=== PATIENT | female | born 1990 | race Caucasian/White ===

== ENCOUNTER 2018-06-20 11:56 | Emergency (ER) | payer MEDICAID ==
[2018-06-20] MEDS ORDERED: Sodium Chloride 0.9% 1,000 ML IV ONE (12:04)
--- NOTE | 2018-06-20 12:20 | EDM.PDOC ---
ED HPI GENERAL MEDICAL PROBLEM - General Chief Complaint: Trauma Stated Complaint: FALL/HIT HEAD Time Seen by Provider: 06/20/18 12:19 Source of Information: Reports: Patient - History of Present Illness INITIAL COMMENTS - FREE TEXT/NARRATIVE: HISTORY AND PHYSICAL: History of present illness: [Patient is 18 weeks with IUP, today she was shopping at [employer] became lightheaded dizzy and then passed out bystanders say she was out for what seemed to be several minutes she did hit her head on the floor she fell back striking her head and she did not land on her stomach She arrives via EMS information is provided by EMS per bystander witnesses No fever nausea vomiting chills sweats no chest pain shortness breath headache dizziness palpitation about a urine symptoms patient does not recall the incident outside of she was shopping and felt lightheaded this has resolved ] Review of systems: As per history of present illness and below otherwise all systems reviewed and negative. Past medical history: As per history of present illness and as reviewed below otherwise noncontributory. Surgical history: As per history of present illness and as reviewed below otherwise noncontributory. Social history: No reported history of drug or alcohol abuse. Family history: As per history of present illness and as reviewed below otherwise noncontributory. Physical exam: HEENT: Atraumatic, normocephalic, pupils reactive, negative for conjunctival pallor or scleral icterus, mucous membranes moist, throat clear, neck supple, nontender, trachea midline. Lungs: Clear to auscultation, breath sounds equal bilaterally, chest nontender. Heart: S1S2, regular, negative for clicks, rubs, or JVD. Abdomen: Soft, nondistended, nontender. Negative for masses or hepatosplenomegaly. Negative for costovertebral tenderness. Pelvis: Stable nontender. Genitourinary: Deferred. Rectal: Deferred. Extremities: Atraumatic, negative for cords or calf pain. Neurovascular unremarkable. Neuro: Awake, alert, oriented. Cranial nerves II through XII unremarkable. Cerebellum unremarkable. Motor and sensory unremarkable throughout. Exam nonfocal. Diagnostics: [CBC CMP UA INR EKG Head CT no contrast OB ultrasound Orthostatic vitals ] heart tones Therapeutics: [ saline ] Impression: Vaso-vagal syncope ] Possible concussion with LOC 18 week IUP with no complications at this time Definitive disposition and diagnosis as appropriate pending reevaluation and review of above. 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: Musculoskeletal History: Reports: None Neurological History: Reports: None Psychiatric History: Reports: None Endocrine/Metabolic History: Reports: None Hematologic History: Reports: None Immunologic History: Reports: None Oncologic (Cancer) History: Reports: None Dermatologic History: Reports: None - Infectious Disease History Infectious Disease History: Reports: Chicken Pox - Past Surgical History Head Surgeries/Procedures: Reports: None Cardiovascular Surgical History: Reports: None Social & Family History - Family History Family Medical History: Noncontributory - Tobacco Use Smoking Status *Q: Never Smoker - Caffeine Use Caffeine Use: Reports: Coffee - Recreational Drug Use Recreational Drug Use: No Review of Systems - Review of Systems Review Of Systems: See Below ED EXAM, GENERAL - Physical Exam Exam: See Below Course - Vital Signs Last Recorded V/S: Last Vital Signs Temp 96.2 F 06/20/18 12:00 Pulse 97 06/20/18 12:00 Resp 18 06/20/18 12:00 BP 124/71 06/20/18 12:00 Pulse Ox 97 06/20/18 12:00 - Orders/Labs/Meds Orders: Active Orders 24 hr Category Date Time Status EKG Documentation Completion [RC] STAT Care 06/20/18 12:05 Active Heart Tones [ Heart Rate] [RC] Click to Edit Care 06/20/18 12:30 Active Orthostatic Vital Signs [RC] ASDIRECTED Care 06/20/18 12:20 Active Labs: Laboratory Tests 06/20/18 06/20/18 06/20/18 Range/Units 12:15 13:33 13:33 WBC 13.56 H (4.0-11.0) K/uL RBC 3.97 L (4.30-5.90) M/uL Hgb 11.9 L (12.0-16.0) g/dL Hct 34.5 L (36.0-46.0) % MCV 86.9 (80.0-98.0) fL MCH 30.0 (27.0-32.0) pg MCHC 34.5 (31.0-37.0) g/dL RDW Std Deviation 45.2 (28.0-62.0) fl RDW Coeff of Carrington 15 (11.0-15.0) % Plt Count 206 (150-400) K/uL MPV 11.50 (7.40-12.00) fL Add Manual Diff YES Neutrophils % (Manual) 80 (48.0-80.0) % Band Neutrophils % 3 % Lymphocytes % (Manual) 12 L (16.0-40.0) % Monocytes % (Manual) 4 (0.0-15.0) % Eosinophils % (Manual) 1 (0.0-7.0) % Nucleated RBC % 0.0 /100WBC Absolute Seg Neuts 10.8 H (1.4-5.7) Band Neutrophils # 0.4 Lymphocytes # (Manual) 1.6 (0.6-2.4) Monocytes # (Manual) 0.5 (0.0-0.8) Eosinophils # (Manual) 0.1 (0.0-0.7) Nucleated RBCs # 0 K/uL INR 1.05 Sodium 137 (136-145) mmol/L Potassium 3.3 L (3.5-5.1) mmol/L Chloride 103 (98-107) mmol/L Carbon Dioxide 20.1 L (21.0-32.0) mmol/L BUN 5 L (7.0-18.0) mg/dL Creatinine 0.7 (0.6-1.0) mg/dL Est Cr Clr Drug Dosing 100.74 mL/min Estimated GFR (MDRD) > 60.0 ml/min Glucose 110 H (74-106) mg/dL Calcium 9.0 (8.5-10.1) mg/dL Total Bilirubin 0.3 (0.2-1.0) mg/dL AST 14 L (15-37) IU/L ALT 17 (14-63) IU/L Alkaline Phosphatase 65 (46-116) U/L Troponin I < 0.050 (0.000-0.056) ng/mL Total Protein 6.6 (6.4-8.2) g/dL Albumin 3.0 L (3.4-5.0) g/dL Globulin 3.6 (2.6-4.0) g/dL Albumin/Globulin Ratio 0.8 L (0.9-1.6) Meds: Medications Discontinued Medications Generic Name Dose Route Start Last Admin Trade Name Freddyq PRN Reason Stop Dose Admin Sodium Chloride 1,000 mls @ 999 mls/hr 06/20/18 12:04 06/20/18 12:28 Normal Saline IV 06/20/18 13:04 999 mls/hr STAT ONE Administration Potassium Chloride 20 meq 06/20/18 13:33 06/20/18 13:39 Klor-Con M20 PO 06/20/18 13:34 20 meq ONETIME ONE Administration Departure - Departure Time of Disposition: 14:04 Disposition: Home, Self-Care 01 Condition: Good Clinical Impression: Vasovagal syncope - Discharge Information Referrals: PCP,None [Primary Care Provider] - Forms: ED Department Discharge Additional Instructions: The following information is given to patients seen in the emergency department who are being discharged to home. This information is to outline your options for follow-up care. We provide all patients seen in our emergency department with a follow-up referral. The need for follow-up, as well as the timing and circumstances, are variable depending upon the specifics of your emergency department visit. If you don't have a primary care physician on staff, we will provide you with a referral. We always advise you to contact your personal physician following an emergency department visit to inform them of the circumstance of the visit and for follow-up with them and/or the need for any referrals to a consulting specialist. The emergency department will also refer you to a specialist when appropriate. This referral assures that you have the opportunity for follow-up care with a specialist. All of these measure are taken in an effort to provide you with optimal care, which includes your follow-up. Under all circumstances we always encourage you to contact your private physician who remains a resource for coordinating your care. When calling for follow-up care, please make the office aware that this follow-up is from your recent emergency room visit. If for any reason you are refused follow-up, please contact the [facility] emergency department at and asked to speak to the emergency department charge nurse. - My Orders Last 24 Hours: My Active Orders 06/20/18 12:05 EKG Documentation Completion [RC] STAT 06/20/18 12:20 Orthostatic Vital Signs [RC] ASDIRECTED 06/20/18 12:30 Heart Tones [ Heart Rate] [RC] Click to Edit - Assessment/Plan Last 24 Hours: My Active Orders 06/20/18 12:05 EKG Documentation Completion [RC] STAT 06/20/18 12:20 Orthostatic Vital Signs [RC] ASDIRECTED 06/20/18 12:30 Heart Tones [ Heart Rate] [RC] Click to Edit
--- NOTE | 2018-06-20 13:13 | CT ---
EXAMINATION: Non contrast CT head. Coronal and sagittal reformats. HISTORY: LOC FINDINGS: No evidence of intra or extra axial hemorrhage, mass, midline shift, hydrocephalus or edema. No hypoattenuation changes in the major vascular territories to suggest acute infarct. No abnormal intracranial calcifications are detected. No evidence of substantial vascular calcifications. Paranasal sinuses and mastoid air cells are well aerated without substantial findings. Orbits and globes are symmetric. Pituitary fossa appears unremarkable. Calvarium is intact. No evidence of skull fracture. IMPRESSION: No acute intracranial findings.
[2018-06-20 13:25] LABS: CHLORIDE,CL 103 mmol/L (98-107); SODIUM,NA 137 mmol/L (136-145)
--- NOTE | 2018-06-20 13:31 | US ---
EXAMINATION: Transabdominal obstetric ultrasound HISTORY: Bleeding COMPARISON: None TECHNIQUE: Grayscale, M-mode imaging obtained. FINDINGS: Single live intrauterine . Placenta appears posterior and intact. heart rate is 148 bpm. The fetus is in a breech position. The biparietal diameter measures 4 cm, head circumference measures 15.1 cm, the abdominal circumference measures 12.6 cm, and the femoral length measures 2.8 cm. This gives an estimated gestational age of 18 weeks and 1 day with an estimated date of delivery at 11/20/2018. Overall the fetus is within the 57th percentile. heart rate is 148 bpm. Estimated weight is 235 g. IMPRESSION: 1. Single live intrauterine in a breech position. 2. Posterior placenta which appears intact.
[2018-06-20] MEDS ORDERED: Potassium Chloride 20 MEQ Tab.ER PO ONE (13:33)
== END 2018-06-20 14:41 | disposition home or self-care (01) ==
LOC: MW.ED 11:56
DX: O99.89 Other specified diseases and conditions complicating pregnancy, childbirth and the puerperium (principal); R55 Syncope and collapse; W08.XXXA Fall from other furniture, initial encounter; Z3A.18 18 weeks gestation of pregnancy
CPT/HCPCS: 36415; 70450; 76805; 80053; 81001; 84484; 85025; 85610; 87086; 93005; 96360; 99285; A9270; J7040; 99284

== ENCOUNTER 2018-11-15 02:49 | Inpatient (IN) | payer MEDICAID ==
[2018-11-15] MEDS ORDERED: Misoprostol 200 MCG Tab PO PRN (03:31)
[2018-11-15] MEDS ORDERED: Nalbuphine 10 MG/1 ML Vial IVPUSH PRN (03:31)
[2018-11-15] MEDS ORDERED: Carboprost Tromethamine 250 MCG/1 ML Amp IM PRN (03:31)
[2018-11-15] MEDS ORDERED: Lidocaine 1% 50 ML MDV INJECT PRN (03:31)
[2018-11-15] MEDS ORDERED: Tranexamic Acid 1,000 MG in Sodium Chloride 0.9% 100 ML IV PRN (03:31)
[2018-11-15] MEDS ORDERED: Butorphanol 1 MG/ML SDV IVPUSH PRN (03:31)
[2018-11-15] MEDS ORDERED: Sodium Chloride 0.9% 10 ML Syringe FLUSH PRN (03:31)
[2018-11-15] MEDS ORDERED: Sodium Chloride 0.9% 2.5 ML Syringe FLUSH PRN (03:31)
[2018-11-15] MEDS ORDERED: Water For Irrigation,Sterile 1,000 ML Container IRR PRN (03:31)
[2018-11-15] MEDS ORDERED: Methylergonovine 0.2 MG/1 ML Amp IM PRN (03:31)
[2018-11-15] MEDS ORDERED: Sodium Chloride 0.9% 10 ML SDV IV PRN (03:31)
[2018-11-15] MEDS ORDERED: Ondansetron 4 MG/2 ML SDV IVPUSH PRN (03:31)
[2018-11-15] MEDS ORDERED: Oxytocin/0.9 % Sodium Chloride 30 UNIT/500 ML BAG IV SCH ×2 (03:45→07:45)
[2018-11-15] MEDS: Lactated Ringers 1,000 ML IV SCH ×4 (04:00→08:51)
--- NOTE | 2018-11-15 05:12 | PCM.PREANE ---
Preanesthetic Assessment - Anesthesia/Transfusion/Family Hx Anesthesia History: Prior Anesthesia Without Reaction Family History of Anesthesia Reaction: No Transfusion History: No Prior Transfusion(s) - Review of Systems General: No Symptoms Pulmonary: No Symptoms Cardiovascular: No Symptoms Gastrointestinal: No Symptoms Neurological: No Symptoms Other: Reports: None - Physical Assessment Height: 5 ft 2 in Weight: 104.326 kg ASA Class: 2 Mental Status: Alert & Oriented x3 Airway Class: Mallampati = 2 Dentition: Reports: Normal Dentition Thyro-Mental Finger Breadths: 3 Mouth Opening Finger Breadths: 3 ROM/Head Extension: Full Lungs: Clear to Auscultation, Normal Respiratory Effort Cardiovascular: Regular Rate, Regular Rhythm - Lab Values: Laboratory Last Values WBC 12.87 K/uL (4.0-11.0) H 11/15/18 03:45 RBC 3.83 M/uL (4.30-5.90) L 11/15/18 03:45 Hgb 10.7 g/dL (12.0-16.0) L 11/15/18 03:45 Hct 33.2 % (36.0-46.0) L 11/15/18 03:45 MCV 86.7 fL (80.0-98.0) 11/15/18 03:45 MCH 27.9 pg (27.0-32.0) 11/15/18 03:45 MCHC 32.2 g/dL (31.0-37.0) 11/15/18 03:45 RDW Std Deviation 49.4 fl (28.0-62.0) 11/15/18 03:45 RDW Coeff of Carrington 16 % (11.0-15.0) H 11/15/18 03:45 Plt Count 206 K/uL (150-400) 11/15/18 03:45 MPV 12.40 fL (7.40-12.00) H 11/15/18 03:45 Nucleated RBC % 0.0 /100WBC 11/15/18 03:45 Nucleated RBCs # 0 K/uL 11/15/18 03:45 Blood Type O POSITIVE 11/15/18 03:45 Antibody Screen NEGATIVE 11/15/18 03:45 - Allergies Allergies/Adverse Reactions: Allergies Allergy/AdvReac Type Severity Reaction Status Date / Time No Known Allergies Allergy Verified 06/20/18 12:07 - Acknowledgements Anesthesia Type Planned: Epidural Pt an Appropriate Candidate for the Planned Anesthesia: Yes Alternatives and Risks of Anesthesia Discussed w Pt/Guardian: Yes Pt/Guardian Understands and Agrees with Anesthesia Plan: Yes PreAnesthesia Questionnaire - Past Health History Medical/Surgical History: Denies Medical/Surgical History HEENT History: Reports: None Cardiovascular History: Reports: None Respiratory History: Reports: None Gastrointestinal History: Reports: GERD Genitourinary History: Reports: None 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 LMP (Approximate): Musculoskeletal History: Reports: None Neurological History: Reports: None Psychiatric History: Reports: None Endocrine/Metabolic History: Reports: Obesity/BMI 30+ Hematologic History: Reports: Anemia Immunologic History: Reports: None Oncologic (Cancer) History: Reports: None Dermatologic History: Reports: None - Infectious Disease History Infectious Disease History: Reports: Chicken Pox - Past Surgical History Head Surgeries/Procedures: Reports: None Cardiovascular Surgical History: Reports: None - SUBSTANCE USE Smoking Status *Q: Never Smoker Tobacco Use Within Last Twelve Months: No Second Hand Smoke Exposure: No Recreational Drug Use History: No - HOME MEDS Home Medications: Home Meds Pnv No.95/Ferrous Fum/Folic AC [ Caplet] 1 tab PO DAILY 06/20/18 [ History] - CURRENT (IN HOUSE) MEDS Current Meds: Current Medications Butorphanol Tartrate (Stadol) 1 mg IVPUSH Q1H PRN PRN Reason: Pain Carboprost Tromethamine (Hemabate Ds) 250 mcg IM ASDIRECTED PRN PRN Reason: Post Hemorrhage Tranexamic Acid 1,000 mg/ (Sodium Chloride) 110 mls @ 660 mls/hr IV ONETIME PRN PRN Reason: Bleeding Lactated Ringer's (Ringers, Lactated) 1,000 mls @ 150 mls/hr IV ASDIRECTED [facility] Last Admin: 11/15/18 04:00 Dose: 500 mls/hr Oxytocin/Sodium Chloride (Oxytocin 30 Unit/500 Ml-Ns) 30 unit in 500 mls @ 999 mls/hr IV TITRATE [facility] Lidocaine HCl (Xylocaine 1%) 50 ml INJECT ONETIME PRN PRN Reason: Laceration repair Methylergonovine Maleate (Methergine) 0.2 mg IM ASDIRECTED PRN PRN Reason: Post Hemorrhage Misoprostol (Cytotec) 200 mcg PO ONETIME PRN PRN Reason: Post Hemorrhage Nalbuphine HCl (Nubain) 10 mg IVPUSH Q1H PRN PRN Reason: Pain (severe 7-10) Ondansetron HCl (Zofran) 4 mg IVPUSH Q6H PRN PRN Reason: Nausea/Vomiting Sodium Chloride (Saline Flush) 10 ml FLUSH ASDIRECTED PRN PRN Reason: Keep Vein Open Sodium Chloride (Saline Flush) 2.5 ml FLUSH ASDIRECTED PRN PRN Reason: Keep Vein Open Sodium Chloride (Normal Saline) 10 ml IV ASDIRECTED PRN PRN Reason: IV Use Sterile Water (Sterile Water For Irrigation) 1,000 ml IRR ASDIRECTED PRN PRN Reason: delivery
[2018-11-15] MEDS ORDERED: ePHEDrine 50 MG/ML SDV ONE (05:46)
[2018-11-15] MEDS ORDERED: Terbutaline 1 MG/ML SDV SUBCUT PRN (07:39)
[2018-11-15] MEDS ORDERED: Bupivacaine 0.5% 10 ML SDV ONE (08:10)
[2018-11-15] MEDS ORDERED: Acetaminophen 500 MG Tab PO PRN ×2 (10:33)
[2018-11-15] MEDS ORDERED: Docusate Sodium 100 MG Cap PO PRN (10:33)
[2018-11-15] MEDS ORDERED: Bisacodyl 10 MG Supp RECTAL PRN (10:33)
[2018-11-15] MEDS ORDERED: Witch Hazel Medicated Pads 40/Jar TOP PRN (10:33)
[2018-11-15] MEDS ORDERED: Benzocaine/Menthol 20%-0.5% Spray 78 GM Cannister TOP PRN (10:33)
[2018-11-15] MEDS ORDERED: Lanolin 100% Cream 7 GM Tube TOP PRN (10:33)
[2018-11-15] MEDS ORDERED: oxyCODONE 5 MG Tab PO PRN (10:33)
[2018-11-15] MEDS ORDERED: Ibuprofen 400 MG Tab PO PRN (10:33)
[2018-11-15] MEDS: Ibuprofen 800 MG Tab PO PRN ×2 (13:07→19:46)
--- NOTE | 2018-11-15 21:56 | PCM.DEL ---
L & D Note - General Info Date of Service: 11/15/18 - Delivery Note Labor: Augmented by Oxytocin Delivery Outcome: Livebirth Delivery Method: Spontaneous Vaginal Delivery-Single Presentation: Left Occiput Anterior ([id number]) Nuchal Cord: None Anesthesia Type: Epidural Amniotic Fluid Description: Clear Episiotomy Type: None Laceration: None Placenta: Intact Cord: 3 Vessels Estimated Blood Loss: 300 Resuscitation Needed: No Score 1 min: 9 Score 5 min: 9 Delivery Comments (Free Text/Narrative):: Live male delivered at 1017 , 9/9 weight 3760g - General Info Date of Service: 11/15/18 - Patient Data Vitals - Most Recent: Last Vital Signs Temp 36.8 C 11/15/18 20:38 Pulse 91 11/15/18 20:38 Resp 16 11/15/18 20:38 BP 109/70 11/15/18 20:38 Pulse Ox 98 11/15/18 20:38 Weight - Most Recent: 104.326 kg I&O - Last 24 Hours: Intake & Output 11/15/18 11/15/18 11/15/18 06:59 14:59 22:59 Intake Total 1999 Balance 1999 Lab Results Last 24 Hours: Laboratory Results - last 24 hr 11/15/18 11/15/18 Range/Units 03:45 03:45 WBC 12.87 H (4.0-11.0) K/uL RBC 3.83 L (4.30-5.90) M/uL Hgb 10.7 L (12.0-16.0) g/dL Hct 33.2 L (36.0-46.0) % MCV 86.7 (80.0-98.0) fL MCH 27.9 (27.0-32.0) pg MCHC 32.2 (31.0-37.0) g/dL RDW Std Deviation 49.4 (28.0-62.0) fl RDW Coeff of Carrington 16 H (11.0-15.0) % Plt Count 206 (150-400) K/uL MPV 12.40 H (7.40-12.00) fL Nucleated RBC % 0.0 /100WBC Nucleated RBCs # 0 K/uL Blood Type O POSITIVE Antibody Screen NEGATIVE Med Orders - Current: Current Medications Acetaminophen (Tylenol Extra Strength) 500 mg PO Q4H PRN PRN Reason: Pain Acetaminophen (Tylenol Extra Strength) 1,000 mg PO Q4H PRN PRN Reason: Pain Benzocaine/Menthol (Dermoplast Pain Relief 20%-0.5% [place]) 78 gm TOP ASDIRECTED PRN PRN Reason: Perineal Comfort Measure Last Admin: 11/15/18 10:57 Dose: 1 can Bisacodyl (Dulcolax) 10 mg RECTAL ONETIME PRN PRN Reason: Constipation Butorphanol Tartrate (Stadol) 1 mg IVPUSH Q1H PRN PRN Reason: Pain Carboprost Tromethamine (Hemabate Ds) 250 mcg IM ASDIRECTED PRN PRN Reason: Post Hemorrhage Docusate Sodium (Colace) 100 mg PO BID PRN PRN Reason: Constipation Emollient Ointment (Lansinoh Hpa) 0 gm TOP ASDIRECTED PRN PRN Reason: Sore Nipples Tranexamic Acid 1,000 mg/ (Sodium Chloride) 110 mls @ 660 mls/hr IV ONETIME PRN PRN Reason: Bleeding Lactated Ringer's (Ringers, Lactated) 1,000 mls @ 150 mls/hr IV ASDIRECTED [facility] Last Admin: 11/15/18 08:51 Dose: 150 mls/hr Oxytocin/Sodium Chloride (Oxytocin 30 Unit/500 Ml-Ns) 30 unit in 500 mls @ 999 mls/hr IV TITRATE [facility] Oxytocin/Sodium Chloride (Oxytocin 30 Unit/500 Ml-Ns) 30 unit in 500 mls @ 2 mls/hr IV TITRATE [facility]ID; Protocol Last Titration: 11/15/18 10:17 Dose: 999 munits/min, 999 mls/hr Ibuprofen (Motrin) 400 mg PO Q4H PRN PRN Reason: Pain Ibuprofen (Motrin) 800 mg PO Q6H PRN PRN Reason: Pain Last Admin: 11/15/18 19:46 Dose: 800 mg Lidocaine HCl (Xylocaine 1%) 50 ml INJECT ONETIME PRN PRN Reason: Laceration repair Methylergonovine Maleate (Methergine) 0.2 mg IM ASDIRECTED PRN PRN Reason: Post Hemorrhage Misoprostol (Cytotec) 200 mcg PO ONETIME PRN PRN Reason: Post Hemorrhage Ondansetron HCl (Zofran) 4 mg IVPUSH Q6H PRN PRN Reason: Nausea/Vomiting Oxycodone HCl (Oxycodone) 5 mg PO Q2H PRN PRN Reason: Pain Sodium Chloride (Saline Flush) 10 ml FLUSH ASDIRECTED PRN PRN Reason: Keep Vein Open Sodium Chloride (Saline Flush) 2.5 ml FLUSH ASDIRECTED PRN PRN Reason: Keep Vein Open Sodium Chloride (Normal Saline) 10 ml IV ASDIRECTED PRN PRN Reason: IV Use Sterile Water (Sterile Water For Irrigation) 1,000 ml IRR ASDIRECTED PRN PRN Reason: delivery Last Admin: 11/15/18 10:10 Dose: 1,000 ml Witch Sharon (Tucks) 1 pad TOP ASDIRECTED PRN PRN Reason: comfort care Last Admin: 11/15/18 10:57 Dose: 1 tub Discontinued Medications Bupivacaine HCl (Sensorcaine-Mpf 0.5%) Confirm Administered Dose 10 ml .ROUTE .STK-MED ONE Stop: 11/15/18 08:11 Ephedrine Sulfate (Ephedrine Sulfate) Confirm Administered Dose 50 mg .ROUTE .STK-MED ONE Stop: 11/15/18 05:47 Fentanyl/Bupivacaine HCl ([place]da-Ukqtk-Zb 2 Mcg/Ml-0.125%) Confirm Administered Dose 100 mls @ as directed .ROUTE .STK-MED ONE Stop: 11/15/18 05:15 Nalbuphine HCl (Nubain) 10 mg IVPUSH Q1H PRN PRN Reason: Pain (severe 7-10) Terbutaline Sulfate (Brethine) 0.25 mg SUBCUT ASDIRECTED PRN PRN Reason: Tacysystole - Problem List & Annotations (1) Vaginal delivery SNOMED Code(s): 546557427 Code(s): O80 - ENCOUNTER FOR FULL-TERM UNCOMPLICATED DELIVERY Status: Acute Current Visit: Yes - Problem List Review Problem List Initiated/Reviewed/Updated: Yes - My Orders Last 24 Hours: My Active Orders 11/15/18 10:33 Patient Status [ADT] Routine May Shower [RC] ASDIRECTED Up ad Latricia [RC] ASDIRECTED Vital Signs [RC] PER UNIT ROUTINE Acetaminophen [Tylenol Extra Strength] 1,000 mg PO Q4H PRN Acetaminophen [Tylenol Extra Strength] 500 mg PO Q4H PRN Benzocaine/Menthol [Dermoplast Pain Relief 20%-0.5% [place]] 78 gm TOP ASDIRECTED PRN Bisacodyl [Dulcolax] 10 mg RECTAL ONETIME PRN Docusate Sodium [Colace] 100 mg PO BID PRN Ibuprofen [Motrin] 400 mg PO Q4H PRN Ibuprofen [Motrin] 800 mg PO Q6H PRN Lanolin [Lansinoh HPA] See Dose Instructions TOP ASDIRECTED PRN Witch Sharon [Tucks] 1 pad TOP ASDIRECTED PRN oxyCODONE 5 mg PO Q2H PRN Assess Lochia [WOMSER] Per Unit Routine Assess Uterine Involution [WOMSER] Per Unit Routine Peripheral IV Discontinue [OM.PC] Routine Resuscitation Status Routine 11/15/18 Lunch Regular Diet [DIET] 11/16/18 05:11 HEMOGLOBIN/HEMATOCRIT,HH [HEME] Timed
--- NOTE | 2018-11-16 04:10 | PCM.POSTAN ---
POST ANESTHESIA ASSESSMENT - MENTAL STATUS Mental Status: Alert - RESPIRATORY Respiratory Status: Respiratory Rate WNL - CARDIOVASCULAR CV Status: Pulse Rate WNL - GASTROINTESTINAL GI Status: No Symptoms - POST OP HYDRATION Hydration Status: Adequate & Stable
--- NOTE | 2018-11-16 04:11 | PCM48HPAN ---
Post Anesthesia Note - EVALUATION WITHIN 48HRS OF ANESTHETIC Vital Signs in Normal Range: Yes Patient Participated in Evaluation: Yes Respiratory Function Stable: Yes Airway Patent: Yes Cardiovascular Function Stable: Yes Hydration Status Stable: Yes Pain Control Satisfactory: Yes Nausea and Vomiting Control Satisfactory: Yes Mental Status Recovered: Yes Resp Rate: 16
[2018-11-16] MEDS: Ibuprofen 800 MG Tab PO PRN (07:43)
--- NOTE | 2018-11-16 09:41 | PCM.PNPP ---
- General Info Date of Service: 11/16/18 Subjective Update: 28yo P2 s/p PPD1 , ambulating , voiding and tolerating regular diet Functional Status: Reports: Pain Controlled, Tolerating Diet, Ambulating, Urinating - Review of Systems General: Reports: No Symptoms HEENT: Reports: No Symptoms Pulmonary: Reports: No Symptoms Cardiovascular: Reports: No Symptoms Gastrointestinal: Reports: No Symptoms Genitourinary: Reports: No Symptoms Musculoskeletal: Reports: No Symptoms Skin: Reports: No Symptoms Neurological: Reports: No Symptoms Psychiatric: Reports: No Symptoms - General Info Date of Service: 11/16/18 - Patient Data Vital Signs - Most Recent: Last Vital Signs Temp 36.6 C 11/16/18 07:35 Pulse 86 11/16/18 07:35 Resp 16 11/16/18 07:35 BP 120/65 11/16/18 07:35 Pulse Ox 98 11/16/18 07:35 Weight - Most Recent: 104.326 kg Lab Results - Last 24 Hours: Laboratory Results - last 24 hr 11/16/18 Range/Units 05:51 Hgb 9.8 L (12.0-16.0) g/dL Hct 31.1 L (36.0-46.0) % Med Orders - Current: Current Medications Acetaminophen (Tylenol Extra Strength) 500 mg PO Q4H PRN PRN Reason: Pain Acetaminophen (Tylenol Extra Strength) 1,000 mg PO Q4H PRN PRN Reason: Pain Benzocaine/Menthol (Dermoplast Pain Relief 20%-0.5% [place]) 78 gm TOP ASDIRECTED PRN PRN Reason: Perineal Comfort Measure Last Admin: 11/15/18 10:57 Dose: 1 can Bisacodyl (Dulcolax) 10 mg RECTAL ONETIME PRN PRN Reason: Constipation Butorphanol Tartrate (Stadol) 1 mg IVPUSH Q1H PRN PRN Reason: Pain Carboprost Tromethamine (Hemabate Ds) 250 mcg IM ASDIRECTED PRN PRN Reason: Post Hemorrhage Docusate Sodium (Colace) 100 mg PO BID PRN PRN Reason: Constipation Emollient Ointment (Lansinoh Hpa) 0 gm TOP ASDIRECTED PRN PRN Reason: Sore Nipples Tranexamic Acid 1,000 mg/ (Sodium Chloride) 110 mls @ 660 mls/hr IV ONETIME PRN PRN Reason: Bleeding Lactated Ringer's (Ringers, Lactated) 1,000 mls @ 150 mls/hr IV ASDIRECTED DAVID Last Admin: 11/15/18 08:51 Dose: 150 mls/hr Oxytocin/Sodium Chloride (Oxytocin 30 Unit/500 Ml-Ns) 30 unit in 500 mls @ 999 mls/hr IV TITRATE DAVID Oxytocin/Sodium Chloride (Oxytocin 30 Unit/500 Ml-Ns) 30 unit in 500 mls @ 2 mls/hr IV TITRATE DAVID; Protocol Last Titration: 11/15/18 10:17 Dose: 999 munits/min, 999 mls/hr Ibuprofen (Motrin) 400 mg PO Q4H PRN PRN Reason: Pain Ibuprofen (Motrin) 800 mg PO Q6H PRN PRN Reason: Pain Last Admin: 11/16/18 07:43 Dose: 800 mg Lidocaine HCl (Xylocaine 1%) 50 ml INJECT ONETIME PRN PRN Reason: Laceration repair Measles/Mumps/Rubella Vaccine Live (M-M-R Ii Vaccine) 0.5 ml SUBCUT .ONCE ONE Stop: 11/16/18 09:36 Methylergonovine Maleate (Methergine) 0.2 mg IM ASDIRECTED PRN PRN Reason: Post Hemorrhage Misoprostol (Cytotec) 200 mcg PO ONETIME PRN PRN Reason: Post Hemorrhage Ondansetron HCl (Zofran) 4 mg IVPUSH Q6H PRN PRN Reason: Nausea/Vomiting Oxycodone HCl (Oxycodone) 5 mg PO Q2H PRN PRN Reason: Pain Sodium Chloride (Saline Flush) 10 ml FLUSH ASDIRECTED PRN PRN Reason: Keep Vein Open Sodium Chloride (Saline Flush) 2.5 ml FLUSH ASDIRECTED PRN PRN Reason: Keep Vein Open Sodium Chloride (Normal Saline) 10 ml IV ASDIRECTED PRN PRN Reason: IV Use Sterile Water (Sterile Water For Irrigation) 1,000 ml IRR ASDIRECTED PRN PRN Reason: delivery Last Admin: 11/15/18 10:10 Dose: 1,000 ml Witch Sharon (Tucks) 1 pad TOP ASDIRECTED PRN PRN Reason: comfort care Last Admin: 11/15/18 10:57 Dose: 1 tub Discontinued Medications Bupivacaine HCl (Sensorcaine-Mpf 0.5%) Confirm Administered Dose 10 ml .ROUTE .STK-MED ONE Stop: 11/15/18 08:11 Ephedrine Sulfate (Ephedrine Sulfate) Confirm Administered Dose 50 mg .ROUTE .STK-MED ONE Stop: 11/15/18 05:47 Fentanyl/Bupivacaine HCl (Pacvgbbj-Qgsyv-Bj 2 Mcg/Ml-0.125%) Confirm Administered Dose 100 mls @ as directed .ROUTE .STK-MED ONE Stop: 11/15/18 05:15 Nalbuphine HCl (Nubain) 10 mg IVPUSH Q1H PRN PRN Reason: Pain (severe 7-10) Terbutaline Sulfate (Brethine) 0.25 mg SUBCUT ASDIRECTED PRN PRN Reason: Tacysystole - Infant Interaction Support Person: Significant Other - Recovery Exam Fundal Tone: Firm Fundal Level: At Umbilicus Fundal Placement: Midline Lochia Amount: Scant Lochia Color: [place] Perineum Description: Intact, Minimal Bruising/Swelling Episiotomy/Laceration: None Bladder Status: Voiding - Exam General: Alert HEENT: Pupils Equal Lungs: Clear to Auscultation Cardiovascular: Regular Rate Neurological: No New Focal Deficit Psy/Mental Status: Alert - Problem List & Annotations (1) Vaginal delivery SNOMED Code(s): 787871979 Code(s): O80 - ENCOUNTER FOR FULL-TERM UNCOMPLICATED DELIVERY Status: Acute Current Visit: Yes - Problem List Review Problem List Initiated/Reviewed/Updated: Yes - My Orders Last 24 Hours: My Active Orders 11/15/18 10:33 Patient Status [ADT] Routine May Shower [RC] ASDIRECTED Up ad Latricia [RC] ASDIRECTED Vital Signs [RC] PER UNIT ROUTINE Acetaminophen [Tylenol Extra Strength] 1,000 mg PO Q4H PRN Acetaminophen [Tylenol Extra Strength] 500 mg PO Q4H PRN Benzocaine/Menthol [Dermoplast Pain Relief 20%-0.5% [place]] 78 gm TOP ASDIRECTED PRN Bisacodyl [Dulcolax] 10 mg RECTAL ONETIME PRN Docusate Sodium [Colace] 100 mg PO BID PRN Ibuprofen [Motrin] 400 mg PO Q4H PRN Ibuprofen [Motrin] 800 mg PO Q6H PRN Lanolin [Lansinoh HPA] See Dose Instructions TOP ASDIRECTED PRN Witch Sharon [Tucks] 1 pad TOP ASDIRECTED PRN oxyCODONE 5 mg PO Q2H PRN Assess Lochia [WOMSER] Per Unit Routine Assess Uterine Involution [WOMSER] Per Unit Routine Peripheral IV Discontinue [OM.PC] Routine Resuscitation Status Routine 11/15/18 Lunch Regular Diet [DIET] 11/16/18 09:35 Vaccines to be Administered [RC] PER UNIT ROUTINE Measles, Mumps & Rubella [M-M-R II Vaccine] 0.5 ml SUBCUT .ONCE ONE - Assessment Assessment:: 28yo P2 s/p PPD1 , , tolerating regular diet - Plan Plan:: Discharge home today MMR before discharge
[2018-11-16] MEDS ORDERED: Measles, Mumps & Rubella Vaccine 0.5 ML SDV SUBCUT ONE (09:50)
--- NOTE | 2018-11-16 10:27 | OR ---
SURGEON: JACQUELYN ARENAS DATE OF PROCEDURE: 11/16/2018 PREOPERATIVE DIAGNOSES: A 28-year-old G2, P1, at 39 weeks 2 days, rupture of membranes. POSTOPERATIVE DIAGNOSES: A 28-year-old G2, P1, at 39 weeks 2 days, rupture of membranes. PROCEDURE: Normal spontaneous vaginal delivery. ESTIMATED BLOOD LOSS: 300. ANESTHESIA: Epidural. NOTES AND FINDINGS: Live male delivered at 10:17. score 9 and 9. Weight is 3760 g. BRIEF HISTORY: She is a 28-year-old G2, P1, 39 weeks and 2 days, came in complaining of rupture. When she came in, she was about 2 to 3 cm dilated. She was started on Pitocin because she did not make any cervical change after some hours. She then had the IUPC also placed. Tracing was category I. The patient then made change and became fully dilated. DESCRIPTION OF PROCEDURE: With the patient being fully dilated, she was encouraged to push. She delivered the head subsequently by the anterior and posterior shoulder, and the body of the infant was delivered. The 's cord was clamped and cut. The infant was handed over to the awaiting nurses. Delayed cord clamping was done. Cord blood gases were obtained. Pitocin was started. Perineum was inspected, noted to be intact also. Controlled cord traction was performed to deliver the placenta. Placenta was delivered without difficulty. Uterus was well contracted afterwards. The patient tolerated the procedure well. All instrument and pad counts were correct x2. EZRA HOLLAND /[id number] SANDRA
== END 2018-11-16 14:35 | disposition home or self-care (01) | DRG 807 ==
LOC: MW.OBCHECK 02:49 → MW.OB 02:52 → MW.OBCHECK 03:31 → MW.OB 03:31 → OBSVTOIN 10:17 → MW.OB 10:17
PROVIDERS: ADMIT Obstetrics & Gynecology; ATTEND Obstetrics & Gynecology
PROC: 10E0XZZ Delivery of Products of Conception, External Approach (ICD-10-PCS; principal; 2018-11-16)
PROC: 10H07YZ Insertion of Other Device into Products of Conception, Via Natural or Artificial Opening (ICD-10-PCS; 2018-11-16)
DX: O42.02 Full-term premature rupture of membranes, onset of labor within 24 hours of rupture (principal); E66.9 Obesity, unspecified; O99.214 Obesity complicating childbirth; D64.9 Anemia, unspecified; O99.02 Anemia complicating childbirth; Z23 Encounter for immunization; Z37.0 Single live birth; Z3A.39 39 weeks gestation of pregnancy
CPT/HCPCS: 36415; 51702; 59025; 59409; 85014; 85018; 85027; 86850; 86900; 86901; 90471; 90707; A9270-GY; J2590; J3490; J7120

== ENCOUNTER 2019-04-05 09:11 | Emergency (ER) | payer MEDICAID ==
--- NOTE | 2019-04-05 09:30 | EDM.PDOC ---
ED HPI GENERAL MEDICAL PROBLEM - General Chief Complaint: Eye Problems Stated Complaint: PINK EYE Time Seen by Provider: 04/05/19 09:28 - History of Present Illness INITIAL COMMENTS - FREE TEXT/NARRATIVE: HISTORY AND PHYSICAL: History of present illness: Patient 29-year-old white female presents with a concern of pinkeye patient states she noticed redness and irritation in her left eye 1 there's been no trauma foreign-body history or other complaints.Review of systems: As per history of present illness and below otherwise all systems reviewed and negative. Past medical history: As per history of present illness and as reviewed below otherwise noncontributory. Surgical history: As per history of present illness and as reviewed below otherwise noncontributory. Social history: No reported history of drug or alcohol abuse. Family history: As per history of present illness and as reviewed below otherwise noncontributory. Physical exam: HEENT: Atraumatic, normocephalic, pupils reactive, injected conjunctiva noted left no evidence of foreign body or corneal abrasion anterior chamber clear negative for conjunctival pallor or scleral icterus, mucous membranes moist, throat clear, neck supple, nontender, trachea midline. Lungs: Clear to auscultation, breath sounds equal bilaterally, chest nontender. Heart: S1S2, regular, negative for clicks, rubs, or JVD. Abdomen: Soft, nondistended, nontender. Negative for masses or hepatosplenomegaly. Negative for costovertebral tenderness. Pelvis: Stable nontender. Genitourinary: Deferred. Rectal: Deferred. Extremities: Atraumatic, negative for cords or calf pain. Neurovascular unremarkable. Neuro: Awake, alert, oriented. Cranial nerves II through XII unremarkable. Cerebellum unremarkable. Motor and sensory unremarkable throughout. Exam nonfocal. Diagnostics: None Therapeutics: None Impression: #1 conjunctivitis Definitive disposition and diagnosis as appropriate pending reevaluation and review of above. - Related Data Allergies Allergy/AdvReac Type Severity Reaction Status Date / Time No Known Allergies Allergy Verified 04/05/19 09:21 Home Meds: Home Meds . 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: Musculoskeletal History: Reports: None Neurological History: Reports: None Psychiatric History: Reports: None Endocrine/Metabolic History: Reports: Obesity/BMI 30+ Hematologic History: Reports: Anemia Immunologic History: Reports: None Oncologic (Cancer) History: Reports: None Dermatologic History: Reports: None - Infectious Disease History Infectious Disease History: Reports: Chicken Pox - Past Surgical History Head Surgeries/Procedures: Reports: None HEENT Surgical History: Reports: None Cardiovascular Surgical History: Reports: None Respiratory Surgical History: Reports: None GI Surgical History: Reports: None Female Surgical History: Reports: None Endocrine Surgical History: Reports: None Neurological Surgical History: Reports: None Musculoskeletal Surgical History: Reports: None Oncologic Surgical History: Reports: None Dermatological Surgical History: Reports: None Social & Family History - Family History Family Medical History: Noncontributory - Tobacco Use Smoking Status *Q: Never Smoker Second Hand Smoke Exposure: No - Caffeine Use Caffeine Use: Reports: Soda - Recreational Drug Use Recreational Drug Use: No ED ROS GENERAL - Review of Systems Review Of Systems: Comprehensive ROS is negative, except as noted in HPI. ED EXAM GENERAL W FULL EYE - Physical Exam Exam: See Below (See dictation) Course - Vital Signs Last Recorded V/S: Last Vital Signs Temp 35.9 C 04/05/19 09:20 Pulse 91 04/05/19 09:20 Resp 16 04/05/19 09:20 BP 127/84 04/05/19 09:20 Pulse Ox 96 04/05/19 09:20 Departure - Departure Time of Disposition: 09:30 Disposition: Home, Self-Care 01 Condition: Good Clinical Impression: Conjunctivitis - Discharge Information Referrals: PCP,None [Primary Care Provider] - Additional Instructions: The following information is given to patients seen in the emergency department who are being discharged to home. This information is to outline your options for follow-up care. We provide all patients seen in our emergency department with a follow-up referral. The need for follow-up, as well as the timing and circumstances, are variable depending upon the specifics of your emergency department visit. If you don't have a primary care physician on staff, we will provide you with a referral. We always advise you to contact your personal physician following an emergency department visit to inform them of the circumstance of the visit and for follow-up with them and/or the need for any referrals to a consulting specialist. The emergency department will also refer you to a specialist when appropriate. This referral assures that you have the opportunity for followup care with a specialist. All of these measure are taken in an effort to provide you with optimal care, which includes your followup. Under all circumstances we always encourage you to contact your private physician who remains a resource for coordinating your care. When calling for followup care, please make the office aware that this follow-up is from your recent emergency room visit. If for any reason you are refused follow-up, please contact the [facility] emergency department at and asked to speak to the emergency department charge nurse. Tobrex as prescribed follow-up primary medical doctor as discussed and return as needed as discussed
== END 2019-04-05 09:35 | disposition home or self-care (01) ==
LOC: MW.ED 09:11
DX: H10.9 Unspecified conjunctivitis (principal); E66.9 Obesity, unspecified
CPT/HCPCS: 99282; 99283